=== PATIENT | female | born 1995 | race Hispanic/Latino ===

== ENCOUNTER 2021-05-27 17:31 | Inpatient (IN) | payer OTHER ==
[~2021-05-27] VITALS: Ht 170.2 cm; Wt 93.9 kg
[2021-05-28] MEDS ORDERED: IRON 100 PLUS1 EACH PO (00:41)
[2021-05-28] MEDS ORDERED: PRENATAL + DHA1 EAC1 PO (00:42)
[2021-05-28] MEDS ORDERED: BAYER CHEWABLE81 MG PO (00:42)
--- NOTE | 2021-05-28 05:54 | PR ---
[facility] [address] [facility] [place], [place] [address] Signed Progress Notes IP Datetime Report Generated by JOEY: 05/28/2021 05:54 PROGRESS NOTES: [id number] Impression: Normal Progression of Labor; Gest. HTN/PreEclampsia/Eclampsia Procedures: Sterile Vag Exam Plan: Continue Present Management VITAL SIGNS: [id number] Vital Signs: Reviewed VS Notable Details: hypertension - see A/P EXAM: [id number] Dilatation: 1.5 Effacement: 80 Station: -2 Contractions: rare, irregular MEMBRANES: [id number] Comments: 25 yo @ 36 3/7 weeks gestation Pre-E with severe features (HTN) -BP elevated but non-severe since labetalol 20mg IV at admission -MgSO4 level pending, continue checks q6h, currently running at 2g/hr -DTRs 2+ bilateral patella, 1 beat faint clonus on right T2DM - glucose checks q4h until active labor then q2h, excellent diet control throughout , random check 100 on admission FETUS A: [id number] FHR Baseline: 145 Variability: Moderate 6-25bpm Accelerations: 15X15 Decelerations: Late FHR Category: Category II Presentation: Vertex Comments on Fetus A: 2 late decelerations during testing FETUS B: [id number] Signing Physician: Roni So DO Copies: ~ *Electronically Signed* 05/28/21 0554 RONI SO DO PATIENT NAME: TORRIE STEELEAYLINPB PROGRESS NOTE DATE OF : 93 PHYSICIAN: RONI SO DO RPT #: [id number] REPORT IS CONFIDENTIAL AND NOT TO BE RELEASED WITHOUT AUTHORIZATION
--- NOTE | 2021-05-28 09:20 | PR ---
[facility] [address] [place], [place] [address] Signed Progress Notes IP Datetime Report Generated by CPN: 05/28/2021 09:20 PROGRESS NOTES: [id number] Impression: Non-reassuring Heart Rate Other Impressions: Sslow progress Procedures: Sterile Vag Exam Other Procedures: SQ Terbutaline Plan: Deliver- Section Informed Consent Obtain: Section Delivery VITAL SIGNS: [id number] Vital Signs: Reviewed VS Notable Details: hypertension - see A/P EXAM: [id number] Dilatation: 3.0 Effacement: 90 Station: -2 Contractions: rare, irregular MEMBRANES: [id number] Membranes Status: Intact Comments: Patient again having some late decels, episodes of decreased variability. Tried different positions, IV bolus with minimal effect. Given Recommend C/S due to Preeclampsia, Type 2 Diabetes, Non-reassuring FHR Tracing remote from delivery. Discussed C/S; procedure, risks, benefits, timing. Patient signed consent form. OR and Anesthesia notified. score caller to OR for Primary C/S FETUS A: [id number] FHR Baseline: 145 Variability: Moderate 6-25bpm Accelerations: 15X15 Decelerations: Late FHR Category: Category II Presentation: Vertex Comments on Fetus A: 2 late decelerations during testing FETUS B: [id number] Signing Physician: Corrie Lopez MD Copies: *Electronically Signed* 05/28/21919 CORRIE LOPEZ MD PATIENT NAME: PB ARGUETA PROGRESS NOTE DATE OF : 93 PHYSICIAN: CORRIE LOPEZ MD RPT #: [id number] REPORT IS CONFIDENTIAL AND NOT TO BE RELEASED WITHOUT AUTHORIZATION [address] [place], [place] [address] Signed ~ *Electronically Signed* 05/28/21 0920 CORRIE LOPEZ MD PATIENT NAME: PB ARGUETA PROGRESS NOTE DATE OF : 93 PHYSICIAN: CORRIE LOPEZ MD RPT #: [id number] REPORT IS CONFIDENTIAL AND NOT TO BE RELEASED WITHOUT AUTHORIZATION
--- NOTE | 2021-05-28 11:51 | NUR ---
05/28/21 1151 Lona Gagnon 1053 PT ARRIVED IN PACU SLEEPY WITH NO C/O'S. 1100 FBC RN AT BEDSIDE HELPING MOM BREASTFEED BABY. FATHER OF BABY AT BEDSIDE. 1115 FATHER STEPPED OUT OF ROOM AND MOTHER IN LAW AT BEDSIDE. PT SWITCHED SIDES TO BREASTFEED WITH ASSIST FROM RN. NO C/O'S. 1125 REPORT GIVEN TO RN. BED PLUGGED IN AND CALL LIGHT IN PLACE.
--- NOTE | 2021-05-29 08:53 | PR ---
[facility] [address] [place], [place] [address] Signed PP Progress Notes Datetime Report Generated by CPN: 05/29/2021 08:53 SUBJECTIVE: [id number] Pain: Within Normal Limits Nausea/Vomiting: Denies Flatus: No Bowel Movement: No Vital Signs: [id number] Vital Signs: Reviewed Notable Details: Recent severe BP while nursing baby, arm flexed. Repeat accurate. EXAM: Ongoing Cardiovascular: Normal Respiratory: Normal Abdomen/Uterus: Normal Lochia: Normal Extremities: Normal Incision: Normal Exam Comments: NAD, sitting up in bed RRR FFBU, incision without strikethrough on dressing IMPRESSION/PLAN/PROCEDURES: [id number] Impression: Normal Progression; Induced Hypertension Plan: Continue Present Management Other Plans: Discontinue MGSO4 @ 1000 Progress Notes: POD#1 s/p PLTCS for nonreassuring FHT remote from delivery -progressing appropriately postop Pre-E with severe features -BP elevated, non-severe overnight -Discontinue MgSO4 at 10 (24h ), start procardia 30XL -Discontinue arreguin once ambulating without assistance -Ok to shower, resume normal diet T2DM - diet controlled -continue fasting glucose Anticipate DC to home in 24-48h Signing Physician: Roni So DO *Electronically Signed* 05/29/21 0853 RONI SO DO PATIENT NAME: PB ARGUETA PROGRESS NOTE DATE OF : 93 PHYSICIAN: RONI SO DO RPT #: [id number] REPORT IS CONFIDENTIAL AND NOT TO BE RELEASED WITHOUT AUTHORIZATION [address], [place] [address] Signed Copies: ~ *Electronically Signed* 05/29/21 0853 RONI SO DO PATIENT NAME: PB ARGUETA PROGRESS NOTE DATE OF : 93 PHYSICIAN: RONI SO DO RPT #: [id number] REPORT IS CONFIDENTIAL AND NOT TO BE RELEASED WITHOUT AUTHORIZATION
--- NOTE | 2021-05-30 20:04 | PATH ---
[facility] [address] [place], [place] [address] Signed SPECIMEN(S): A PLACENTA SPECIMEN SOURCE: A. PLACENTA CLINICAL HISTORY: Mother's age: 27. OB history: . Gestational age: 36 weeks. 's weight: 2220 g. score: 8/9. Rh + Antibody screen: -. Maternal serologies: Rubella I, RPR NR, hepatitis screen -, GBS unknown. Specific issues of concern: Preeclampsia, diabetes, non-reassuring heart rate. FINAL PATHOLOGIC DIAGNOSIS: Placenta, third trimester: - Garcia placenta, small for stated gestational age of 36 weeks. - Umbilical cord: Three-vessel umbilical cord with no histopathologic abnormality. - membranes: No histopathologic abnormality. - Placental disc: Chorionic villi with accelerated maturity, maternal decidual vasculopathy, retroplacental/decidual thrombohematoma. COMMENT: The histologic changes in the placental disc are consistent with the history of preeclampsia. NAL:smn:C2NR MICROSCOPIC EXAMINATION: Histologic sections of all submitted blocks are examined by light microscopy. These findings, together with the gross examination, support the pathologic diagnosis. GROSS DESCRIPTION: The specimen, labeled "MP, placenta," is received fresh and placed in formalin and consists of garcia discoid placenta with the following parameters: Umbilical cord: Insertion eccentric-5.6 cm from the margin, measurement 12.8 x 1.0 cm; trivascular. Cord coiling index (per 10 cm): Grossly indeterminate. Lesions: Not grossly identified. Membranes: Insertion site: Marginal, carrasco/translucent, rupture site eccentric. Intact. Other: Not grossly identified. Chorionic Plate: Normal radiating vascular pattern, blue-purple and shiny. Lesions: Not grossly identified. Other: Not grossly identified. PATIENT NAME: PB ARGUETA PATHOLOGY DATE OF : [birth year] REPORT #: [id number] PHYSICIAN: MICHELE PATHOLOGY PCP: NO PRIMARY CARE PHYSICIAN REPORT IS CONFIDENTIAL AND NOT TO BE RELEASED WITHOUT AUTHORIZATION [facility] [address] [place], [place] [address] Signed Maternal Surface: Normal cotyledons, intact. Lesions: Two focal areas of adherent blood clot that are 1.7 and 3.5 cm in greatest dimension and comprising less than 5% of the surface. Measurement: 14.3 x 13.2 x 2.2 cm. Weight (trimmed): 267 g. Cut Surface: Maroon and spongy. Lesions: Not grossly identified. Basal plate fibrin 0.1 cm in thickness. Other Findings: Not grossly identified. Cassette Summary: (A1) membranes and umbilical cord (A2) eccentric section of placenta including blood clot (A3) central section of placenta (A4) eccentric section of placenta including adherent blood clot. AI(under the direct supervision of a pathologist) The Gross Description was prepared using a voice recognition system. The report was reviewed for accuracy; however, sound-alike word errors, addition and/or deletions may occur. If there is any question about this report, please contact Client Services. PERFORMING LABORATORY: The technical component was performed by [employer], [address] [place] [address] (Manager Corporate: Deepali Robin MD; CLIA# [id number]). [facility], [address] [facility] [place] [id number] (CLIA# [id number]). Diagnostician: Ankita Fenton MD Pathologist Electronically Signed 05/30/2021 Copies: ~ PATIENT NAME: STEPHENIEBG PB MEDRANO PATHOLOGY DATE OF : 93 REPORT #: [id number] PHYSICIAN: MICHELE HENNESSY PCP: NO PRIMARY CARE PHYSICIAN REPORT IS CONFIDENTIAL AND NOT TO BE RELEASED WITHOUT AUTHORIZATION
--- NOTE | 2021-05-30 20:37 | PR ---
[facility] [address] [place], [place] [address] Signed PP Progress Notes Datetime Report Generated by CPN: 05/30/2021 20:37 SUBJECTIVE: [id number] Pain: Within Normal Limits Nausea/Vomiting: Denies Flatus: Yes Bowel Movement: No Vital Signs: [id number] Vital Signs: Reviewed Notable Details: elevated, non-severe EXAM: Ongoing Cardiovascular: Normal Respiratory: Normal Abdomen/Uterus: Normal Lochia: Normal Breasts: Normal Extremities: Normal Incision: Normal Progress: Normal Exam Comments: Tearful, holding baby after baby was under bili lights all day IMPRESSION/PLAN/PROCEDURES: [id number] Impression: Normal Progression Plan: Continue Present Management Other Plans: Discontinue MGSO4 @ 1000 Procedures: None Progress Notes: POD#2 s/p PLTCS for nonreassuring heart tones remote from delivery -progressing well postop, anticipate DC to home tomorrow Pre-eclampsia with severe features -s/p MgSO4 since admission through 24h -BP normotensive to mildly elevated on Procardia 30XL, asymptomatic, plan to continue current dose T2DM -well-controlled with diet/exercise -plan to retest with 2h glucose tolerance test at 6 wk Baby not yet DCd by peds; under bili lights all day today Anticipate DC to home tomorrow if BP remains stable Signing Physician: Roni So DO *Electronically Signed* 05/30/212036 RONI SO DO PATIENT NAME: PB ARGUETA PROGRESS NOTE DATE OF : 93 PHYSICIAN: RONI SO DO RPT #: [id number] REPORT IS CONFIDENTIAL AND NOT TO BE RELEASED WITHOUT AUTHORIZATION [address] [place] [address] Signed Copies: ~ *Electronically Signed* 05/30/21 203 RONI SO DO PATIENT NAME: PB ARGUETA PROGRESS NOTE DATE OF : 93 PHYSICIAN: RONI SO DO RPT #: [id number] REPORT IS CONFIDENTIAL AND NOT TO BE RELEASED WITHOUT AUTHORIZATION
--- NOTE | 2021-05-31 09:28 | PR ---
[facility] [address] [place], [place] [address] Signed PP Progress Notes Datetime Report Generated by CPAlessandra: 05/31/2021 09:27 SUBJECTIVE: [id number] Pain: Within Normal Limits Nausea/Vomiting: Denies Flatus: Yes Bowel Movement: No Vital Signs: [id number] Vital Signs: Reviewed Notable Details: BP well controlled on procardia 30XL EXAM: Ongoing Cardiovascular: Normal Respiratory: Normal Abdomen/Uterus: Normal Lochia: Normal Breasts: Normal Extremities: Normal Incision: Normal Progress: Normal Exam Comments: NAD Pumped 30mL milk RRR No dyspnea Abd SNTND Ext with 1+ BLLE pitting edema IMPRESSION/PLAN/PROCEDURES: [id number] Impression: Normal Progression Other Impression: BP well-controlled on Procardia Plan: Continue Present Management; Remove [place]; Discharge Other Plans: Discontinue MGSO4 @ 1000 Procedures: None Progress Notes: POD#3 s/p PLTCS PreE with severe features -BP well controlled on Procardia 30XL -s/p IV MgSO4 T2DM -AM fasting glucose in the 60's -plan 2h GTT at 6 weeks , discussed continuing glucose checks and diabetic *Electronically Signed* 05/31/21926 RONI SO DO PATIENT NAME: PB ARGUETA PROGRESS NOTE DATE OF : 93 PHYSICIAN: RONI SO DO RPT #: [id number] REPORT IS CONFIDENTIAL AND NOT TO BE RELEASED WITHOUT AUTHORIZATION [facility] [address] [place], [place] [address] Signed diet Follow-up in office Wednesday or Wednesday next week for BP check Signing Physician: Roni So DO Copies: ~ *Electronically Signed* 05/31/21926 RONI SO DO PATIENT NAME: PB ARGUETA PROGRESS NOTE DATE OF : 93 PHYSICIAN: RONI SO DO RPT #: [id number] REPORT IS CONFIDENTIAL AND NOT TO BE RELEASED WITHOUT AUTHORIZATION
--- NOTE | 2021-06-09 10:04 | OR ---
[facility] [address] [place], [place] [address] Signed DATE OF OPERATION: 05/28/2021 SURGEON: Corrie Crane MD Patient of Dr. Crane. PREOPERATIVE DIAGNOSES: Nonreassuring heart rate tracing, preeclampsia, type 2 diabetes, and remote from delivery. POSTOPERATIVE DIAGNOSES: Nonreassuring heart rate tracing, preeclampsia, type 2 diabetes, and remote from delivery plus ROP presentation and abnormal placenta. PROCEDURE: Primary low transverse segment section, delivery of live male infant. 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 Ravi. ANESTHESIA: Epidural. ESTIMATED BLOOD LOSS: 500 mL. COMPLICATIONS: None. DRAINS: Magaña to bladder. FINDINGS: Live male , Apgars 8 and 9. Weight 4 pounds 14 ounces. The placenta was very small. The membranes were somewhat abnormal with purplish and yellowish spots within the membranes and some apparent calcifications, otherwise normal uterus, normal tubes and ovaries bilateral. DESCRIPTION OF PROCEDURE: The patient was brought to the operating room, placed in the supine position. After Electronically Signed By: CORRIE CRANE MD 06/04/21 0911 PATIENT NAME: PB ARGUETA OPERATIVE REPORT DATE OF : 93 REPORT #: [id number] PHYSICIAN: CORRIE CRANE MD PCP: NO PRIMARY CARE PHYSICIAN REPORT IS CONFIDENTIAL AND NOT TO BE RELEASED WITHOUT AUTHORIZATION [facility] [address] [place], [place] [address] Signed adequate epidural anesthesia was obtained, the patient was prepped and draped in usual sterile fashion. The patient already had a Magaña catheter in place. A Pfannenstiel skin incision was made with a scalpel and extended through the subcutaneous tissue with Bovie and scalpel. The fascia was nicked with scalpel and extended transverse fashion using curved scissors. The underlying abdominal musculature was bluntly and sharply from the fascia above and below the incision. The abdominal musculature was bluntly and sharply along the midline. The peritoneum was grasped with hemostats elevated, nicked with scissors and extended in vertical fashion using scissors and blunt dissection. The Markel self-retaining retractor was inserted into the incision and tightened in place. The lower uterine segment was examined and was then nicked with the scalpel. Clear fluid came from the incision. The incision was extended in transverse fashion using finger dissection. The infant was noted to be in the vertex ROP presentation. 's head easily delivered from the incision. The rest of the infant was easily delivered from the incision. The cord doubly clamped and cut. The infant passed off table in good condition to awaiting nurse. Cord gases were obtained and the placenta manually removed. The placenta and membranes appear abnormal, so they were sent to pathology for evaluation. The uterine cavity was explored a lap pad to remove any retained membranes. An angle stitch of 0 Monocryl suture was placed at one end of the incision and a running locking stitch of 0-Monocryl starting at the other end used to close the incision. A 2nd running stitch of 0 Monocryl was used to imbricate the 1st layer. Good hemostasis was noted. The entire pelvis was irrigated, suctioned, examined and good hemostasis was noted. The Markel retractor was removed and sheet of ACell placed over lower uterine segment to help with healing. The anterior wall peritoneum was then closed using running stitch of 2-0 Vicryl suture. The abdominal musculature was reapproximated using interrupted stitches of 0 Vicryl suture. The abdominal wall incision was irrigated, suctioned, and examined, and any bleeding spots cauterized with the Bovie. Powdered ACell was then sprinkled on the abdominal musculature to help with healing and the fascia closed used using 2 running stitches of 0 Vicryl suture meeting in the midline. Subcutaneous tissue was irrigated, suctioned, and examined, and any bleeding spots were cauterized with the Bovie. Subcutaneous tissue was closed using interrupted stitches of 3-0 Vicryl sutures. Skin was reapproximated using skin clips. The patient tolerated the procedure well, went to recovery room in good condition. Again, placenta was sent to Pathology for evaluation. Corrie Crane MD MJB/MODL Electronically Signed By: CORRIE CRANE MD 06/04/21 0911 PATIENT NAME: PB ARGUETA OPERATIVE REPORT DATE OF : [birth year] REPORT #: [id number] PHYSICIAN: CORRIE CRANE MD PCP: NO PRIMARY CARE PHYSICIAN REPORT IS CONFIDENTIAL AND NOT TO BE RELEASED WITHOUT AUTHORIZATION [address] [address] Signed /[id number] Copies: ~ Electronically Signed By: CORRIE CRANE MD 06/04/21 0911 PATIENT NAME: PB ARGUETA OPERATIVE REPORT DATE OF : [birth year] REPORT #: [id number] PHYSICIAN: CORRIE CRANE MD PCP: NO PRIMARY CARE PHYSICIAN REPORT IS CONFIDENTIAL AND NOT TO BE RELEASED WITHOUT AUTHORIZATION
== END 2021-05-31 12:42 | disposition home or self-care (01) | DRG 788 ==
LOC: FBCO 17:31 → FBC 21:34
PROVIDERS: ADMIT Obstetrics & Gynecology; ATTEND Obstetrics & Gynecology
PROC: 10D00Z1 Extraction of Products of Conception, Low, Open Approach (ICD-10-PCS; principal; 2021-05-27)
DX: O14.14 Severe pre-eclampsia complicating childbirth (principal); Z3A.36 36 weeks gestation of pregnancy; Z37.0 Single live birth; O76 Abnormality in fetal heart rate and rhythm complicating labor and delivery; O24.92 Unspecified diabetes mellitus in childbirth; O64.2XX0 Obstructed labor due to face presentation, not applicable or unspecified; O99.02 Anemia complicating childbirth; D64.9 Anemia, unspecified
CPT/HCPCS: 01961; 59025; 76818; 76819; 80053; 80500; 82570; 82803; 83615; 83735; 84156; 84550; 85025; 85027; A9270; G0463; J0456; J0690; J2001; J2274; J2370; J2405; J2540; J2590; J2765; J2795; J3010; J3475; J7060; J7121; U0003